=== PATIENT | male | born 1960 | race Caucasian/White ===

== ENCOUNTER 2017-12-25 10:06 | Outpatient (CLI) | payer OTHER ==
[~2017-12-25] VITALS: Ht 177.8 cm; Wt 184.5 kg
--- NOTE | ~2017-12-25 | OP ---
PATIENT NAME: SILVESTRE PETERS MEDICAL RECORD: [id number] :64 LOCATION:D.[facility] ADMISSION DATE: SURGEON: ORNNIE PARK MD DATE OF OPERATION: 12/25/2017 PROCEDURE: Left and right heart catheterization, right femoral artery and vein approach directly. CATHETERS: A 5-Irish sheath, 5/4 left and right Dereje, [place]-Vargas on the right side. The procedure was well tolerated. The patient returned to the mayo and sheath removed. Manual pressure and ExoSeal device placed. FINDINGS: Left ventriculography in 30-degree NGUYEN view, severe global hypokinesis. Overall, reduced EF 20%. CORONARY ANATOMY: LEFT MAIN: Left main is free of disease. LAD: Free of disease in the diagonal system. CIRCUMFLEX: Free of disease in the marginal system. RIGHT CORONARY ARTERY: The right coronary artery is a codominant system, free of disease. IMPRESSION: Nonischemic cardiomyopathy. RIGHT HEART: Right heart pressures show pulmonary capillary wedge pressure is 34 mmHg. PA pressure is 57/46 with a mean of 50. RV pressure 65/34 and RA pressure of 34. IMPRESSION: Markedly elevated right-sided pressures. This finding is consistent with nonischemic cardiomyopathy, perhaps tachycardia mediated. We will add digoxin to hopefully help with rate control as well as Aldactone to his loop diuretic. Further recommendations based on clinical course. TRANSINT:[id number] Voice Confirmation ID: [id number] DOCUMENT ID: [id number] RONNIE PARK MD at 0849 CC: [id number] DICTATION DATE: 12/25/17 162 AUTOMOTIVE REPAIR TECHNICIAN: 12/25/17 1732 DEP CLI 12/25/17 [facility] [address] [place] [address]
--- NOTE | ~2017-12-25 | HEMODYNAMI ---
PATIENT:SILVESTRE PETERS MEDICAL RECORD: [id number] : 64 LOCATION:[place] ADMISSION DATE: 12/25/17 Generatedon:12/25/201716:20 Patient name: SILVESTRE PETERS Patient #: [id number] SSN: D OB: 1960 Date of study: 12/25/2017 Page: Of Hemodynamic Procedure Report Patient Data Patient Demographics Procedure consent was obtained First Name: SILVESTRE Gender: Male Last Name: FRAN : 1960 [facility] Initial: ESTHELA Age: 57 year(s) Patient #: [id number] Race: Unknown Additional ID: [id number] Contact details [address]: [address] [place] [address] State: [place] City: [place] Zip code: [address] Past Medical History Allergies Allergen Reaction Date Comments Reported Other allergy 12/25/2017 carvedilol Admission Admission Data Admission Date: 12/25/2017 Admission Time: 10:06 Height (in.): 60 BSA: 2.53 (m2) Height (cm.): 152.4 BMI: 79.88 (kg/m2) Weight (lbs.): 409 Weight (kg.): 185.52 Procedure Procedure Types Cath Procedure Diagnostic Procedure Right Heart RHC and LHC w/Coronaries Procedure Description Procedure Date Procedure Date: 12/25/2017 Procedure Start Time: 15:46 Procedure End Time: 16:19 Procedure Staff Name Function Timmy Neal MD Performing Physician Sugey Kohli RT Monitor Makeda Alonso RN Nurse Jasper Camilo RN Nurse Slade Lester RT Monitor Procedure Data Cath Procedure Fluoroscopy Diagnostic fluoroscopy Total fluoroscopy Time: 4.6 time: 4.6 min min Diagnostic fluoroscopy Total fluoroscopy dose: dose: 1173 mGy 1173 mGy Contrast Material Contrast Material Type Amount (ml) Isovue 300 67 Entry Location Entry Primary Successful Side Size Upsize Upsize Entry Closure Ramirez ccessful Closure Location (Fr) 1 (Fr) 2 (Fr) Remarks Device Remarks Femoral Right 7 Fr Exoseal artery Short Femoral Right 7 Fr Manual vein Short Compression Estimated blood loss: 10 ml Diagnostic catheters Device Type Used For End Catheter Placement SWAN 7Fr Thermodilution Procedure cather (131F7P) MULTIPACK JL 4.0 5Fr Procedure catheter MULTIPACK 3DRC 5Fr Procedure catheter MULTIPACK Pigtail 5 Fr Procedure catheter Procedure Medications Medication Administration Route Dosage Oxygen NC 2 l/min Lidocaine 2% S.C. 20 Heparin Flush Bag added to field 2 bags (1000units/500ml NS) 0.9% NaCl I.V. 100 ml/hr Versed I.V. 1 mg Fentanyl I.V. 50 mcg Versed I.V. 1 mg Fentanyl I.V. 50 mcg Fentanyl I.V. 50 mcg Digoxin I.V. 0.5 mg Hemodynamics Rest BSA: 2.53 (m2) O2 Consumption: Estimated: 372.22 (ml/min) O2 Consumption indexed : Estimated:147.12 (ml/min/m) Heart Rate: 146 (bpm) Pressure Samples Time Site Value (mmHg) Purpose Heart Use Rate(bpm) 15:55 PA 57/46(51) Snapshot 144 15:57 PCW 33/34(32) Snapshot 149 15:58 PCW 34/35(32) Snapshot 138 15:58 RV 65/34,29 Snapshot 123 15:58 RA 35/41(34) Snapshot 160 16:07 LV 124/22,22 Snapshot 147 Gradients Valve Time Site Site Mean SEP/DFP Peak To Heart Use 1 2 (mmHg) (sec/min) Peak Rate (mmHg) (bpm) Aortic 16:08 LV AO 142 Snapshots Pre Cath Intra NCS Post Cath Vital Signs Time Heart Resp SPO2 etCO2 NIBP Rhythm Pain Sedation Rate (ipm) (%) (mmHg) (mmHg) Status Level (bpm) 15:37:40 130 26 93 0 Measuring A-Fib 0 (11) 10(A) , No pain 15:38:54 114 24 94 0 116/66(94) A-Fib 0 (11) 10(A) , No pain 15:43:32 129 19 96 34.3 112/48(91) A-Fib 0 (11) 10(A) , No pain 15:48:17 127 13 92 26.8 107/45(74) A-Fib 0 (11) 10(A) , No pain 15:52:47 139 17 96 31.3 112/61(88) A-Fib 0 (11) 10(A) , No pain 15:57:28 119 14 94 44.8 96/40(82) A-Fib 0 (11) 10(A) , No pain 16:02:27 142 15 93 35.8 Measuring A-Fib 0 (11) 10(A) , No pain 16:06:08 151 15 96 34.3 100/55(73) A-Fib 0 (11) 10(A) , No pain 16:14:28 144 16 94 35 118/68(92) A-Fib 0 (11) 10(A) , No pain 16:18:52 95 34.3 No Cuff A-Fib 0 (11) 10(A) , No pain Medications Time Medication Route Dose Verified Delivered Reason Notes Effe ctiveness by by 15:41:01 Oxygen NC 2 Timmy Caryie used for l/min [facility] Jose Alonso sr. payroll processor 15:41:12 Lidocaine 2% S.C. 20ml Timmy Warner for local vial [facility] anesthetic MD CORMIER 15:41:17 Heparin Flush added 2 Timmy Dodgeory used for Bag to bags [facility] procedure (1000units/500ml field MD CORMIER NS) 15:41:25 0.9% NaCl I.V. 100 Timmy Ashford Per ml/hr St Jose Alonso RN physician 15:45:41 Versed I.V. 1 mg Timmy Ashford for ÁngelJose Alonso RN sedation 15:45:46 Fentanyl I.V. 50 Timmy Ashford for mcg ÁngelJose Alonso RN sedation 15:54:35 Versed I.V. 1 mg Timmy Ashford for Ángel Alonso RN sedation 15:54:38 Fentanyl I.V. 50 Timmy Townsendie for mcg Ángel Alonso RN sedation 15:57:32 Fentanyl I.V. 50 [place] [facility] [place]el Alonso RN sedation 16:10:36 Digoxin I.V. 0.5 Timmy Ashford Per mg St Jose Alonso RN physician Procedure Log Time Note 15:03:59 Patient Height : 60 inches 15:04:31 Patient Weight : 409 lbs 15:06:02 Diagnostic Cath status Elective 15:06:05 Makeda Alonso RN sent for patient. Start room use. 15:06:18 Time tracking: Regular hours (M-F 7:00 - 5:00) 15:06:25 Plan of Care:Hemodynamics will remain stable., Cardiac rhythm will remain stable., Comfort level will be maintained., Respiratory function will remain adequate., Patient/ family verbilizes understanding of procedure., Procedure tolerated without complication., Recovers from procedure without complications.. 15:06:33 Patient received from Pre/Post Procedure Room to CCL 2 Alert and oriented. Tansferred to table in Supine position. 15:06:35 Warm blankets applied, and golden hugger turned on for patient comfort. 15:06:36 Correct patient and procedure confirmed by team. 15:06:38 Signed procedure consent form obtained from patient. 15:06:48 H&P Date Dictated: 12/23/2017 Within 30 days and on chart., H&P Addendum completed by physician on day of procedure. (MUST COMPLETE FOR ALL OUTPATIENTS). 15:07:00 Family in waiting room. 15:07:03 Patient NPO since Midnight. 15:07:30 Patient allergic to Other allergycarvedilol 15:07:34 Is the patient allergic to Iodine/contrast media? No. 15:07:36 Was the patient premedicated? Yes 15:35:02 Is patient on blood thinner?Yes 15:35:44 patient states he stopped taking his coumadin on 12/21/2017 15:35:45 ECG and BP/O2 sat monitors applied to patient. 15:35:51 Vital chart was started 15:35:53 Baseline sample Acquired. 15:35:54 Full Disclosure recording started 15:35:55 Pre-procedure instructions explained to patient. 15:35:56 Pre-op teaching completed and patient verbalized understanding. 15:35:59 Patient diabetic? Yes. 15:36:00 If diabetic: On Metformin? Yes 15:36:05 If on Metformin: Last Dose? 12/23/2017 15:36:13 Previous problem with sedation/anesthesia? No ? 15:36:15 Snore? Yes 15:36:22 Sleep apnea? No 15:36:23 Deviated septum? No 15:36:23 Opens mouth fully? Yes 15:36:24 Sticks out tongue? Yes 15:36:31 Airway obstruction? Yes copd,chf 15:36:34 Dentures? No ? 15:37:01 Pre procedure: right dorsailis pedis pulse 1+ Palpable, but thready & weak; easily obliterated 15:37:04 Patient pain scale 0/10 ?. 15:37:15 IV patent on arrival in left forearm with 0.9% NaCl at [facility]. 15:37:19 Lab results completed and on chart. 15:37:23 Right groin area was prepped with chlora-prep and draped in sterile fashion 15:37:24 Alarms reviewed by R. N. 15:37:24 Sharps counted by scrub and verified by R.N. 15:37:27 Physician arrived 15:37: --------ALL STOP TIME OUT------ 15:37:27 Final Timeout: patient, procedure, and site verified with staff and physician. All members of the team are in agreement. 15:37:29 Right groin site verified by team. 15:37:32 Physical assessment completed. ASA score P 2 - A patient with mild systemic disease as per Timmy Neal MD. 15:37:35 Sedation plan: IV Moderate Sedation Medication:Versed, Fentanyl 15:38:43 Use device set Femoral Dx 15:38:44 ACIST Syringe (22583) opened to sterile field. 15:38:44 Bag Decanter (2002S) opened to sterile field. 15:38:45 Medline Cath Pack ([id number]) opened to sterile field. 15:38:45 DIAGNOSTIC WIRE .035 260cm J wire (665495) opened to sterile field. 15:38:46 ACIST Hand Control (42627) opened to sterile field. 15:38:47 ACIST Manifold (35245) opened to sterile field. 15:38:47 DIAGNOSTIC Multipack 5Fr catheter set ([id number]) opened to sterile field. 15:38:48 Tegaderm 4 x 4 (1626W) opened to sterile field. 15:38:49 SHEATH Prelude 5Fr 0.035 ([id number]-9H-59-035) opened to sterile field. 15:41:01 Oxygen 2 l/min NC was administered by Makeda Alonso RN; used for procedure; 15:41:12 Lidocaine 2% 20ml vial S.C. was administered by Timmy Neal MD; for local anesthetic; 15:41:17 Heparin Flush Bag (1000units/500ml NS) 2 bags added to field was administered by Timmy Neal MD; used for procedure; 15:41:25 0.9% NaCl 100 ml/hr I.V. was administered by Makeda Alonso RN; Per physician; 15:41:25 Rhythm: atrial fibrillation 15:42:46 SHEATH 7FR Idabel (CZR877) opened to sterile field. 15:45:41 Versed 1 mg I.V. was administered by Makeda Alonso RN; for sedation; 15:45:46 Fentanyl 50 mcg I.V. was administered by Makeda Alonso RN; for sedation; 15:46:03 Procedure started. 15:50:41 A 7 Fr Short sheath was inserted into the Right Femoral artery 15:51:36 SHEATH 7FR Idabel (MGL449) opened to sterile field. 15:52:28 A 7 Fr Short sheath was inserted into the Right Femoral vein 15:52:49 A SWAN 7Fr Thermodilution cather (131F7P) was advanced over the wire and used for Procedure. 15:53:18 Zero performed for pressure channel P1 15:53:22 Zero performed for pressure channel P1 15:53:25 Zero performed for pressure channel P1 15:53:28 Zero performed for pressure channel P1 15:53:34 Zero performed for pressure channel P1 15:53:36 Zero performed for pressure channel P1 15:53:40 Zero performed for pressure channel P1 15:53:42 Zero performed for pressure channel P1 15:54:10 Zero performed for pressure channel P1 15:54:35 Versed 1 mg I.V. was administered by Makeda Alonso RN; for sedation; 15:54:38 Fentanyl 50 mcg I.V. was administered by Makeda Alonso RN; for sedation; 15:56:38 DIAGNOSTIC WIRE .025 150cm J (081029) opened to sterile field. 15:56:58 025 wire advanced into swan 15:57:32 Fentanyl 50 mcg I.V. was administered by Makeda Alonso RN; for sedation; 15:59:38 Right heart pressures measured 15:59:50 [place]-Vargas removed. 16:00:13 A MULTIPACK JL 4.0 5Fr catheter was advanced over the wire and used for Procedure. 16:01:32 LCA angiography performed. 16:02:22 Catheter removed. 16:03:04 DIAGNOSTIC WIRE .035 260cm J wire (526142) opened to sterile field. 16:03:20 first j wire bent 16:03:51 A MULTIPACK 3DRC 5Fr catheter was advanced over the wire and used for Procedure. 16:04:57 RCA angiography performed. 16:05:04 Catheter removed. 16:05:55 A MULTIPACK Pigtail 5 Fr catheter was advanced over the wire and used for Procedure. 16:07:35 LV hemodynamics recorded. 16:07:38 LV gram done using NGUYEN 16:08:11 EF : 20 % 16:08:36 Catheter removed. 16:10:19 EXOSEAL 7Fr (EX700) opened to sterile field. 16:10:36 Digoxin 0.5 mg I.V. was administered by Makeda Alonso RN; Per physician; 16:10:59 Sheath removed intact; hemostasis achieved with Exoseal to the Right Femoral artery. 16:11:46 Procedure ended.(Physican Out) 16:11:53 Fluoroscopy time 04.60 minutes. 16:12:10 Flurop Dose total: 1173 16:12:10 Fluoroscopy dose: 1173 mGy 16:12:27 Contrast amount:Isovue 300 67ml. 16:12:29 Sharps counted by scrub and verified by R.N. 16:16:16 Insertion/operative site no bleeding no hematoma. 16:16:22 Post-op/insertion site Right Femoral artery dressed using a 4 x 4 and Tegaderm. 16:16:42 Sheath removed intact; hemostasis achieved with Manual Compression to the Right Femoral vein. 16:17:10 Post-op/insertion site Right Femoral vein dressed using a 4 x 4 and Tegaderm. 16:17:16 Post right femoral artery:stable 16:17:21 Post right femoral vein:stable 16:17:33 Post-procedure physical assessment completed. ASA score P 2 - A patient with mild systemic disease as per Timmy Neal MD. 16:18:31 Post procedure rhythm: sinus tachycardia 16:18:35 Estimated blood loss: 10 ml 16:18:37 Post procedure instruction explained to patient.Patient verbalizes understanding. 16:18:38 Patient needs reinforcement of post procedure teaching. 16:18:39 Procedure and supply charges have been captured, reviewed, submitted and are correct. 16:19:34 Vital chart was stopped 16:19:35 See physician's report for complete and final results. 16:19:39 Report given to Pre/Post Procedure Room. 16:19:43 Patient transfered to Pre/Post Procedure Room with Stretcher. 16:19:48 Procedure ended. 16:19:48 Full Disclosure recording stopped 16:19:59 End room use (Document Last) Device Usage Item Name Manufacture Quantity Catalog Number Hospital Part Current M inimal Lot# / Charge Number Stock Stock Serial# Code ACIST Syringe Acist 1 40704 066699 476551 015925 2 0 (52757) Medical [employer] Bag Decanter Microtek 1 120473 64773 962959 5 () Medical Inc. Medline Cath Cardinal 1 [id number] 635320 26341 726166 5 Pack Health ([id number]) DIAGNOSTIC WIRE St Kwan 2 800229 338661 515056 594703 3 0 .035 260cm J wire (562892) ACIST Hand Acist 1 01653 562678 485982 609436 5 Control (48526) [employer] ACIST Manifold Acist 1 11273 809933 168618 218900 5 (46527) Medical Systems Inc DIAGNOSTIC Cardinal 1 [id number] 327912 71864 096748 3 0 Multipack 5Fr Health catheter set ([id number]) Tegaderm 4 x 4 3M 1 1626W 874049 773097 163980 5 (1626W) SHEATH Prelude Merit 1 XUT-4B-02-035 457224 323700 513906 5 5Fr 0.035 Medical (THE-1N-79-035) SHEATH 7FR Terumo 2 KXV347 104690 085923 046882 5 Idabel (BYG318) SWAN 7Fr Gómez 1 131F7P 000091 91946 899891 3 Thermodilution Lif[employer]iences cather (131F7P) DIAGNOSTIC WIRE St Kwan 1 002266 938807 423772 328807 2 .025 150cm J (256022) MULTIPACK JL Cardinal 1 870076 5 4.0 5Fr Health catheter MULTIPACK 3DRC Cardinal 1 545517 5 5Fr catheter Health MULTIPACK Cardinal 1 826231 5 Pigtail 5 Fr Health catheter EXOSEAL 7Fr Cardinal 1 EX700 764179 646780 114030 5 (EX700) Health Signature Audit [place] Stage Time Signature Unsigned Intra-Procedure 12/25/2017 Slade Lester 4:20:32 PM RT(R) (CV) Signatures Monitor : Sugey Kohli RT Signature : Date : Time : Monitor : Slade Lester RT Signature : Date : Time : [id number] [place] [address]
[2017-12-25] MEDS ORDERED: PRINIVIL20 MG PO (10:29)
[2017-12-25] MEDS ORDERED: GLUCOPHAGE1000 MG PO (10:30)
[2017-12-25] MEDS ORDERED: LASIX20 MG (10:31)
[2017-12-25] MEDS ORDERED: GLYBURIDE5 M1 PO (10:32)
[2017-12-25] MEDS ORDERED: NEURONTIN 300300 MG PO (10:32)
[2017-12-25] MEDS ORDERED: COUMADIN5 MG PO (10:34)
[2017-12-25 10:43] VITALS: BP 122/101; Ht 177.8 cm; Wt 184.5 kg
[2017-12-25 10:44] LABS: BASOPHILS 0.4 % (0-2); EOSINOPHILS 2.6 % (0-7); HEMATOCRIT 41.9 % (42.0-54.0); HEMOGLOBIN 13.5 g/dL (13.5-17.5); IMMATURE GRANULOCYTES 0.7 % (0-5); LYMPHOCYTES 23.5 % (15-50); MCH 26.6 pg (26.0-34.0); MCHC 32.2 g/dL (31.0-37.0); MCV 82.6 fL (80.0-100.0); MEAN PLATELET VOLUME 11.5 fL (7.4-10.4); MONOCYTES 11.1 % (2-11); NEUTROPHILS 61.7 % (40-80); PLATELET COUNT 184 10x3/uL (130-400); RBC 5.07 10x6/uL (4.20-6.10); RDW 17.1 % (11.5-14.5); WBC 12.3 10x3/uL (4.8-10.8)
[2017-12-25 10:56] LABS: ANION GAP 10.3 mmol/L (8-16); CALCIUM 9.9 mg/dL (8.5-10.1); CARBON DIOXIDE 28.2 mmol/L (21.0-32.0); CREATININE - SERUM 1.1 mg/dL (0.6-1.3); POTASSIUM - SERUM 4.5 mmol/L (3.5-5.1)
[2017-12-25 10:57] LABS: INR 1.24 (0.85-1.17); PROTIME 15.1 SECONDS (11.6-15.0)
[2017-12-25] MEDS ORDERED: ALDACTONE25 MG PO (16:36)
[2017-12-25] MEDS ORDERED: LANOXIN125 MCG PO (16:36)
== END 2017-12-25 18:15 | disposition home or self-care (01) ==
LOC: D.CATH 10:06
PROVIDERS: Internal Medicine Interventional Cardiology
DX: I42.8 Other cardiomyopathies (principal); Z01.812 Encounter for preprocedural laboratory examination

== ENCOUNTER → 2018-01-17 10:13 | Outpatient (CLI) | payer OTHER ==
[2017-12-25 10:43] VITALS: BMI 58.3
[~2018-01-17 10:13] MED LIST: ALDACTONE25 MG PO; COUMADIN5 MG PO; GLUCOPHAGE1000 MG PO; GLYBURIDE5 M1 PO; LANOXIN125 MCG PO; LASIX20 MG; NEURONTIN 300300 MG PO; PRINIVIL20 MG PO
== END | disposition home or self-care (01) ==
LOC: D.RT 10:13
DX: R06.09 Other forms of dyspnea (principal)

== ENCOUNTER → 2018-03-31 15:37 | Outpatient (CLI) | payer OTHER ==
[2017-12-25 10:43] VITALS: BMI 58.3
[2018-04-02 14:15] LABS: ANA REFLEX - DIRECT Negative (Negative)
== END | disposition home or self-care (01) ==
LOC: D.LABREF 15:37
PROVIDERS: Internal Medicine Pulmonary Disease
DX: J98.4 Other disorders of lung (principal)